=== PATIENT | male | born 2000 | race African-American/Black ===

== ENCOUNTER 2021-06-27 01:17 | Emergency (ER) | payer OTHER ==
--- NOTE | 2021-06-27 02:57 | ED Physician Documentation ---
PD HPI HEENT - Stated complaint Stated Complaint: R EAR PX - Chief complaint Chief Complaint: Heent - History obtained from History obtained from: Patient - History of Present Illness Timing - onset: How many days ago (2) Timing - duration: Days (2) Timing - details: Constant Pain level now: 6 Location: Right ear Improves: Nothing Worsens: Other (no exacerbating factors) Associated symptoms: No: Fever Similar symptoms before: Diagnosis (similar to previous episode of left ear infection a few years ago) Recently seen: Not recently seen - Additional information Additional information: c/o 2 days of left ear pain, sharp and at times pulsating (per patient). Denies injury, denies fever. Sensation of drainage from the left ear although he has not seen/felt actual discharge. Review of Systems Constitutional: reports: Reviewed and negative Ears: reports: Ear pain. denies: Loss of hearing, Drainage/discharge (at times he feels as though there is discharge but has not seen/felt actual discharge), Tinnitus/ringing Nose: reports: Reviewed and negative Throat: denies: Sore throat PD PAST MEDICAL HISTORY - Past Medical History Past Medical History: No Cardiovascular: None Respiratory: None Neuro: None Endocrine/Autoimmune: None GI: None : None HEENT: None Psych: None Musculoskeletal: None Derm: None - Past Surgical History Past Surgical History: Yes HEENT: Tonsil/Adenoidectomy - Present Medications Home Medications: Ambulatory Orders Medication Instructions Recorded Confirmed Amox/Clav 875/125 [Augmentin 1 tablet PO Q12H 7 Days #14 tablet 06/27/21 875/125 Tab] - Allergies Allergies/Adverse Reactions: Allergies Allergy/AdvReac Type Severity Reaction Status Date / Time No Known Drug Allergies Allergy Verified 06/27/21 01:49 - Social History Does the pt smoke?: No Smoking Status: Never smoker Does the pt drink ETOH?: No Does the pt have substance abuse?: No - Immunizations Immunizations are current?: Yes - POLST Patient has POLST: No PD ED PE NORMAL - Vitals Vital signs reviewed: Yes - General General: Alert and oriented X 3, No acute distress, Well developed/nourished - HEENT HEENT: Moist mucous membranes, Pharynx benign PD ED PE EXPANDED - HEENT HEENT: R TM red, Other (right external auditory canal: mild erythema, mild edema. tenderness with exam (otoscopic speculum insertion, pressure applied to tragus). moderate central erythema of right TM) Results - Vitals Vitals: Vital Signs - 24 hr 06/27/21 03:26 Temperature 36.4 C L Heart Rate 55 L Respiratory 16 Rate Blood Pressure 142/88 H O2 Saturation 99 Oxygen O2 Source Room air PD MEDICAL DECISION MAKING - ED course Complexity details: considered differential, d/w patient ED course: most elements of H+P c/w right otitis externa, but moderate central left TM erythema noted , so will cover with both topical for externa and PO abx for possible element of OM Departure - Departure Disposition: Home, Self Care Clinical Impression: Otitis externa Qualifiers: Otitis externa type: unspecified type Chronicity: acute Laterality: right Qualified Code(s): H60.501 - Unspecified acute noninfective otitis externa, right ear Otitis media Qualifiers: Otitis media type: unspecified Chronicity: acute Qualified Code(s): H66.90 - Otitis media, unspecified, unspecified ear Condition: Good Instructions: ED Otitis Media Acute Adult, ED Otitis Externa Follow-Up: [facility] [Provider Group] Prescriptions: Amox/Clav 875/125 [Augmentin 875/125 Tab] 1 tablet PO Q12H 7 Days #14 tablet Comments: Use the antibiotic drops as follows: 3 drops in right ear three times per day for 7 days. A prescription for the oral antibiotic (augmentin; amoxicillin with clavulanic acid) has been electronically submitted to the [facility] pharmacy in [place]. Discharge Date/Time: 06/27/21 03:26
[2021-06-27] MEDS ORDERED: NEOMYCIN/POLYMYX/HC OTIC DROPS RIGHTEAR STA (03:11)
[2021-06-27] MEDS ORDERED: AMOX/CLAV 875 MG/125 MG TABLET PO STA (03:12)
[2021-06-27 03:27] VITALS: BP 142/88
== END 2021-06-27 03:26 | disposition home or self-care (01) ==
LOC: ED 01:17
DX: H60.501 Unspecified acute noninfective otitis externa, right ear (principal)
CPT/HCPCS: 99282; A9270